=== PATIENT | male | born 1945 | race Two or more races ===

== ENCOUNTER 2020-07-15 12:36 | Outpatient (CLI) | payer OTHER ==
[~2020-07-15 12:36] MED LIST: RAMIPRIL2.5 MG PO
== END 2020-07-15 12:41 | disposition home or self-care (01) ==
LOC: LAB 12:36
PROVIDERS: ATTEND Urology
DX: N20.1 Calculus of ureter (principal)

== ENCOUNTER 2020-07-15 13:23 | Outpatient (CLI) | payer OTHER | END 2020-07-15 13:25 | disposition home or self-care (01) | LOC: TOM 13:23 | PROVIDERS: ATTEND Urology | DX: K57.90 Diverticulosis of intestine, part unspecified, without perforation or abscess without bleeding (principal); C61 Malignant neoplasm of prostate; R10.84 Generalized abdominal pain; Q61.00 Congenital renal cyst, unspecified ==

== ENCOUNTER → 2022-07-20 | Outpatient (CLI) | payer OTHER | END | disposition home or self-care (01) | LOC: RAD 07:26 | PROVIDERS: ATTEND Urology | DX: R31.21 Asymptomatic microscopic hematuria (principal); C61 Malignant neoplasm of prostate; R10.84 Generalized abdominal pain ==

== ENCOUNTER 2023-11-10 08:23 | Outpatient (CLI) | payer OTHER | END 2023-11-10 08:28 | disposition home or self-care (01) | LOC: RAD 08:23 | PROVIDERS: ATTEND Urology | DX: N20.0 Calculus of kidney (principal) ==